=== PATIENT | female | born 1950 | race Caucasian/White ===

== ENCOUNTER 2019-11-18 07:53 | Outpatient (CLI) | payer OTHER, SELFPAY ==
--- NOTE | ~2019-11-18 | US_ITS ---
EXAMINATION: US abdomen complete EXAM DATE: 11/18/2019 08:29 INDICATION: Abdominal pain. TECHNIQUE: Multiple grayscale and Doppler images of the complete abdomen were obtained (by a technolo gist who performed the scan) and subsequently reviewed. There is no prior study for comparison. FINDINGS: The abdominal aorta is normal in caliber. Visualized portion IVC is patent. The pancreatic head a nd body are normal in appearance. The pancreatic tail is not visualized. The liver has normal echogenicity and contour. There are no focal liver lesions identified. There is no evidence of intrahepatic biliary duct dilation. Portal venous flow was seen in the hepatopedal , normal direction and has normal Doppler waveform. Common bile duct measures 3-4 mm, which is normal. The gallbladder wall is normal in thickness, with expected amount of distention. No sonographic evidence of pericholecystic fluid. There is a gallsto ne measuring 1.4 cm. Technologist performing exam reports patient did not demonstrate sonographic Mu rphy's sign. Please note that this sign is less reliable in patients who have received pain medicati on. Right kidney: There is normal contour and echogenicity. It measures 9.8 x 4.3 x 4.4 centimeters. T here are no focal renal lesions identified. There is no hydronephrosis. Left kidney: There is normal contour and echogenicity. It measures 9.7 x 4.0 x 4.6 centimeters. Th ere are no focal renal lesions identified. There is no hydronephrosis. The spleen measures 8.5 x 2.4 centimeters with scattered calcifications, granulomata, but is otherwis e morphologically normal. IMPRESSION: 1. Cholelithiasis. Reviewed, dictated and finalized at location B. GER SUSTAINABILITY IMPRESSION: 1. Cholelithiasis.
== END 2019-11-18 07:54 | disposition home or self-care (01) ==
PROVIDERS: PCP Family Medicine; Visit Provider Family Medicine
DX: R10.9 Unspecified abdominal pain (principal); R19.8 Other specified symptoms and signs involving the digestive system and abdomen; K80.20 Calculus of gallbladder without cholecystitis without obstruction
CPT/HCPCS: 76700